=== PATIENT | female | born 1985 | race African-American/Black ===

== ENCOUNTER 2017-06-02 11:56 | Emergency (ER) | payer OTHER ==
[~2017-06-02] VITALS: Ht 154.9 cm; Wt 86.2 kg
[~2017-06-02 11:56] MED LIST: FLEXERIL PO; IBUPROFEN 200200 M1; IBUPROFEN 800800 MG PO; NOHOMEMEDICATIONS; PHENERGAN 25 MG25 M1 PO; PREDNISONE 20 M20 MG PO; TESSALON PERLE100 MG PO; VENTOLIN HFA 1818 GM INH
[2017-06-02] MEDS ORDERED: MUCINEX DM ER1 EACH PO (14:24)
[2017-06-02] MEDS ORDERED: PROMETHAZINE/C118 ML PO (14:24)
[2017-06-02 14:28] VITALS: BP 159/65
== END 2017-06-02 14:32 | disposition home or self-care (01) ==
LOC: ER 11:56
DX: J06.9 Acute upper respiratory infection, unspecified (principal); R05 Cough; R09.89 Other specified symptoms and signs involving the circulatory and respiratory systems; F17.210 Nicotine dependence, cigarettes, uncomplicated; Z88.8 Allergy status to other drugs, medicaments and biological substances